=== PATIENT | female | born 1965 | race African-American/Black ===

== ENCOUNTER 2020-03-01 21:22 | Emergency (ER) | payer SELFPAY ==
[~2020-03-01] VITALS: Ht 149.9 cm; Wt 77.1 kg
[2020-03-01 21:35] VITALS: BP 141/76
--- NOTE | 2020-03-01 21:35 | NUR ---
TO TENT # 02 AMBULATORY
--- NOTE | 2020-03-01 21:45 | NUR ---
SEEN AND EXAMINED BY KIKE WITH ORDER AND CARRIED OUT.
[2020-03-01 22:25] VITALS: BP 141/76
--- NOTE | 2020-03-01 22:25 | NUR ---
Patient discharged with v/s stable. Written and verbal after care instructions given and explained. Patient alert, oriented and verbalized understanding of instructions. Ambulatory with steady gait. All questions addressed prior to discharge. ID band removed. Patient advised to follow up with PMD. Rx of ACETAMINOPHENWITH CODEINE, PREDNISONE given. Patient educated on indication of medication including possible reaction and side effects. Opportunity to ask questions provided and answered.
== END 2020-03-01 22:25 | disposition home or self-care (01) ==
LOC: MED 21:22
DX: J20.9 Acute bronchitis, unspecified (principal)
CPT/HCPCS: 71045; 99283